=== PATIENT | male | born 1970 | race Caucasian/White ===

== ENCOUNTER 2018-10-15 07:49 | Outpatient (RCR) | payer BC | END 2019-01-13 | disposition home or self-care (01) | LOC: CARD 07:49 | PROVIDERS: ATTEND Family Medicine | DX: R00.2 Palpitations (principal); F41.0 Panic disorder [episodic paroxysmal anxiety] | CPT/HCPCS: 93225; 93226 ==

== ENCOUNTER 2022-10-29 05:35 | Outpatient (CLI) | payer BC ==
[~2022-10-29] VITALS: Ht 177.8 cm; Wt 100.7 kg
== END 2022-11-04 13:08 | disposition home or self-care (01) ==
LOC: PREOP 05:35
PROVIDERS: ATTEND Surgery
DX: Z01.818 Encounter for other preprocedural examination (principal)

== ENCOUNTER 2022-11-07 11:11 | Day surgery (SDC) | payer BC ==
[~2022-11-07] VITALS: Ht 177.8 cm; Wt 100.7 kg
[2022-11-07] MEDS ORDERED: LACTATED RINGERS 1,000 ML IV STA (11:21)
[2022-11-07 11:37] VITALS: BP 124/85
[2022-11-07] MEDS ORDERED: PROPOFOL INJECTION 50 ML IV ONE (13:53)
[2022-11-07] MEDS ORDERED: MIDAZOLAM 2 MG/2 ML (VERSED) VIAL ONE (13:54)
--- NOTE | 2022-11-07 14:14 | Progress Note-Post Operative ---
Post-Operative Progess Note Surgeon (s)/Board Certified Music Therapist (s) Surgeon SARAH DIAS DO Board Certified Music Therapist: na Pre-Operative Diagnosis screening colonoscopy Post-Operative Diagnosis diverticulosis Procedure & Operative Findings Date of Procedure 11/07/22 Procedure Performed/Findings colonoscopy Anesthesia Type per wheel press clerk Estimated Blood Loss Estimated blood loss (mL): none Specimens/Packing Specimens Removed none SARAH DIAS DO Nov 07, 2022 14:14
[2022-11-07 14:15] VITALS: BP 100/61
--- NOTE | 2022-11-07 14:15 | Discharge Inst-Simple/Standard ---
Discharge Inst-Standard Patient Instructions/Follow Up Plan of Care/Instructions/FU: 10 year lui for repeat colonoscopy unless famliy history of colon cancer or personal history of polyps which would be 5 years. Any issues before that be seen at that time. Activity as Tolerated: Yes Discharge Diet: Regular Diet (high fiber) SARAH DIAS DO Nov 07, 2022 14:15
--- NOTE | 2022-11-07 14:18 | Anesthesia-General Post-Op ---
MAC Patient Condition Mental Status/LOC: Same as Preop Cardiovascular: Satisfactory Nausea/Vomiting: Absent Respiratory: Satisfactory Pain: Controlled Complications: Absent Post Op Complications Complications None Follow Up Care/Instructions Patient Instructions None needed. Anesthesiology Discharge Order Discharge Order Patient is doing well, no complaints, stable vital signs, no apparent adverse anesthesia problems. No complications reported per nursing. ARDEN JOE CRNA Nov 07, 2022 14:18
[2022-11-07 14:20] VITALS: BP 100/61
[2022-11-07 14:25] VITALS: BP 106/68
[2022-11-07 14:46] VITALS: BP 124/80
--- NOTE | 2022-11-08 01:12 | OPERATIVE REPORT ---
DATE OF SERVICE: 11/07/2022 PREOPERATIVE DIAGNOSIS: Screening colonoscopy. POSTOPERATIVE DIAGNOSIS: Diverticulosis. PROCEDURE: Colonoscopy. SURGEON: Sarah Harley DO ANESTHESIA: Per LINE BUILDER. ESTIMATED BLOOD LOSS: None. COMPLICATIONS: None. INDICATIONS: A 52-year-old male with needing screening colonoscopy. He understands risks and benefits of procedure and wished to proceed. Consent was signed in chart. DESCRIPTION OF PROCEDURE: The patient was taken to endoscopy suite, placed in left lateral recumbent position. Timeout was performed. Digital rectal exam was performed. No palpable polyps, masses or ulcerations. Scope was inserted in the rectum and advanced all the way to the cecum with minimal difficulty. Prep was adequate. Scope was slowly retracted back. No polyps, masses or ulcerations in the cecum, ascending, transverse, descending and sigmoid colon. Minimal amount of diverticulosis present in the sigmoid. Once in the rectum, Scope was retroflexed noting no other pathology. Scope was returned to its normal position, slowly withdrawn until completely removed. The patient tolerated the procedure well without any complications, taken to recovery room in stable condition. RECOMMENDATIONS: The patient will need repeat colonoscopy in 10 years unless family history of colon cancer, which then will be 5 years or personal history of colon polyps, which will then be 5 years. Any issues before that, be seen at that time. The patient with diverticulosis, we will recommend high-fiber diet. Job ID: [id number] DocumentID: [id number] Dictated Date: 11/07/2022 14:16:58 Coat Joiner Lockstitch Date: 11/08/2022 01:11:00 Dictated By: SARAH HARLEY DO
== END 2022-11-07 14:48 | disposition home or self-care (01) ==
LOC: ENDO 11:11
PROVIDERS: ATTEND Surgery
DX: Z12.11 Encounter for screening for malignant neoplasm of colon (principal); K57.30 Diverticulosis of large intestine without perforation or abscess without bleeding